=== PATIENT | female | born 1965 | race Hispanic/Latino ===

== ENCOUNTER 2024-12-14 12:33 | Emergency (ER) | payer SELFPAY ==
[~2024-12-14] VITALS: Ht 162.6 cm; Wt 117.2 kg
[2024-12-14 12:40] VITALS: PULSE 80; RESP 16; TEMP 98.1; O2SAT 100
[2024-12-14] MEDS ORDERED: LYRICA200 MG PO (12:56)
== END 2024-12-14 13:08 | disposition home or self-care (01) ==
LOC: FSED 12:39
DX: M79.605 Pain in left leg (principal); M79.604 Pain in right leg; E11.40 Type 2 diabetes mellitus with diabetic neuropathy, unspecified; Z79.01 Long term (current) use of anticoagulants; Z86.718 Personal history of other venous thrombosis and embolism
CPT/HCPCS: 99284